=== PATIENT | female | born 1995 | race Caucasian/White ===

== ENCOUNTER 2016-07-22 12:20 | Emergency (ER) | payer OTHER ==
[~2016-07-22] VITALS: Ht 165.1 cm; Wt 58.2 kg
[~2016-07-22 12:20] MED LIST: FEXO1TAB46 PO; MAGN400T6 PO; MULT-506 PO; OMEP20CA9 PO; donperidone PO
[2016-07-22 12:22] VITALS: TEMP 36.6; Ht 165.1 cm; Wt 58.2 kg
[2016-07-22] MEDS ORDERED: KETOROLAC TROMETHAMINE 30 MG/ML VIAL IV STA (12:29)
[2016-07-22] MEDS ORDERED: SODIUM CHLORIDE 0.9% 1000ML 1,000 ML IV STA (12:29)
[2016-07-22 12:55] LABS: BASO % 0.2 %; BASO ABS # 0.02 K/uL (0-0.2); COMPLETE YES; EOS % 2.4 %; HEMATOCRIT 42.3 % (37-47); IG% 0.3 %; LYMPH % 16.3 %; LYMPH ABS # 1.49 K/uL (1.2-3.4); MEAN CELL VOLUME 86.5 fL (80-100); MEAN CORPUSCULAR HEMOGLOBIN 30.3 pg (25-34); MEAN PLATELET VOLUME 9.9 fL (7.4-10.4); MONO % 6.3 %; NEUT % 74.5 %; PLATELET COUNT 217 K/uL (130-400); RED BLOOD COUNT 4.89 M/uL (4.2-5.4); WHITE BLOOD COUNT 9.14 K/uL (4.8-10.8)
[2016-07-22 13:12] LABS: BUN/CREATININE RATIO 10.7 (10-20); CALCIUM 9.6 mg/dl (8.5-10.1); CREATININE 0.92 mg/dl (0.60-1.20)
[2016-07-22 13:15] LABS: ALB/GLOB RATIO 1.4 (0.9-2)
[2016-07-22] MEDS ORDERED: KETOROLAC TROMETHAMINE 30 MG/ML VIAL ONE (14:45)
[2016-07-22 15:17] VITALS: O2SAT 100
--- NOTE | 2016-07-22 15:32 | DIAGNOSTIC IMAGING REPORT ---
PELVIC ULTRASOUND CLINICAL HISTORY: Right lower quadrant pain. Right pelvic pain. COMPARISON STUDY: None. TECHNIQUE: Transabdominal sonography of the pelvis was performed. Transvaginal imaging was deferred in this patient. FINDINGS: The uterus measures 8.8 x 3.6 x 4.6 cm. The endometrium measures 6 mm in thickness. The right ovary measures 2.5 x 1.2 x 1.9 cm and the left measures 1.7 x 1.4 x 1.7 cm. No free fluid is identified. A noncompressible tubular structure within the right lower quadrant measures 8 mm in caliber. This has gut signature and could reflect the appendix. IMPRESSION: 1. Unremarkable transabdominal sonographic appearance of the uterus and ovaries. 2. 8 mm noncompressible tubular structure within the right lower quadrant. This may reflect the appendix. If so, the appendix is mildly dilated. The findings are not highly suggestive of acute appendicitis although if clinical concern, a CT with contrast could be obtained. Electronically signed by: Steve Morataya M.D. 07/22/2016 3:31 PM Dictated Date/Time: 07/22/2016 3:28 PM
[2016-07-22 15:55] LABS: URINE APPEARANCE CLEAR (CLEAR); URINE BILIRUBIN NEG (NEG); URINE COLOR YELLOW; URINE EPITHELIAL CELL AUTO >30 /lpf (0-5); URINE NITRITE NEG (NEG); URINE SPECIFIC GRAVITY 1.008 (1.000-1.030); UROBILINOGEN NEG (NEG)
--- NOTE | 2016-07-22 15:59 | EMERGENCY ROOM VISIT NOTE ---
History Report prepared by Eugenie: Lona Salmeron Under the Supervision of: Dr. Rangel Lira D.O. First contact with patient: 12:25 Chief Complaint: PELVIC PAIN Stated Complaint: PELVIC PAIN/ MENSTRAUL PAIN History of Present Illness The patient is a 20 year old female who presents to the Emergency Room with complaints of worsening menstrual cramps starting this morning. She rates her discomfort as a 7/10 in severity. She reports that her last 2 periods had included increasingly painful cramps. This morning she started her period and experienced worse cramps that are very uncharacteristic for her. The pain is more present in her right side and radiates down into her legs. She describes the pain as intense. She is also experiencing dizziness, nausea, and some fever. She denies any abnormal vaginal discharge, diarrhea, constipation, or urinary symptoms. She took some Motrin this morning which gave her some relief. The patient denies being sexually active and she has not been before. She has a family history of endometriosis. Source of History: patient Onset: this morning Position: pelvis (right) Symptom Intensity: 7/10 Quality: other (intense pain) Timing: worsening Modifying Factors (Relieving): ibuprofen Associated Symptoms: + fevers, + nausea, No diarrhea, No urinary symptoms Note: Pt reports dizziness. Pt denies abnormal vaginal discharge or constipation. Review of Systems See HPI for pertinent positives & negatives. A total of 10 systems reviewed and were otherwise negative. Past Medical & Surgical Medical Problems: (1) Asthma (2) Gastroparesis (3) Gastrostomy tube in place Family History Cancer Endometriosis Gallbladder disease Heart disease Hypertension Lung disease Social History Smoking Status: Never Smoker Marital Status: single Housing Status: lives with roommate Occupation Status: [employer] student Current/Historical Medications Scheduled Magnesium Oxide (Mag-Ox), 400 MG PO DAILY Omeprazole (Prilosec), 20 MG PO DAILY [donperidone], 10 MG PO DAILY Allergies Coded Allergies: Penicillins (Verified Allergy, Unknown, HIVES, 07/22/16) Physical Exam Vital Signs Date Time Temp Pulse Resp B/P Pulse Ox O2 Delivery O2 Flow Rate FiO2 07/22/16 15:17 58 16 111/71 100 07/22/16 14:41 52 18 106/76 97 07/22/16 12:22 36.6 80 20 113/73 94 Room Air Physical Exam CONSTITUTIONAL/VITAL SIGNS: Reviewed / noted above. GENERAL: Non-toxic in appearance. INTEGUMENTARY: Warm, dry, and [place]. HEAD: Normocephalic. EYES: without scleral icterus or trauma. ENT/OROPHARYNX: clear and moist. LYMPHADENOPATHY/NECK: Is supple without lymphadenopathy or meningismus. RESPIRATORY: Lungs clear and equal. CARDIOVASCULAR: Regular rate and rhythm. GI/ABDOMEN: Soft. No organomegaly or pulsatile mass. No rebound or guarding. Normal bowel sounds. Mild tenderness to the right pelvis. EXTREMITIES: Warm and well perfused. BACK: No CVA tenderness. NEUROLOGICAL: Intact without focal deficits. PSYCHIATRIC: normal affect. MUSCULOSKELETAL: Normally developed with good muscle tone. Medical Decision & Procedures ER Provider Diagnostic Interpretation: Radiology results as stated below per my review and radiologist interpretation: PELVIC ULTRASOUND CLINICAL HISTORY: Right lower quadrant pain. Right pelvic pain. COMPARISON STUDY: None. TECHNIQUE: Transabdominal sonography of the pelvis was performed. Transvaginal imaging was deferred in this patient. FINDINGS: The uterus measures 8.8 x 3.6 x 4.6 cm. The endometrium measures 6 mm in thickness. The right ovary measures 2.5 x 1.2 x 1.9 cm and the left measures 1.7 x 1.4 x 1.7 cm. No free fluid is identified. A noncompressible tubular structure within the right lower quadrant measures 8 mm in caliber. This has gut signature and could reflect the appendix. IMPRESSION: 1. Unremarkable transabdominal sonographic appearance of the uterus and ovaries. 2. 8 mm noncompressible tubular structure within the right lower quadrant. This may reflect the appendix. If so, the appendix is mildly dilated. The findings are not highly suggestive of acute appendicitis although if clinical concern, a CT with contrast could be obtained. Electronically signed by: Steve Morataya M.D. 07/22/2016 3:31 PM Dictated Date/Time: 07/22/2016 3:28 PM Laboratory Results 07/22/16 12:45 Red Blood Count 4.89, Mean Corpuscular Volume 86.5, Mean Corpuscular Hemoglobin 30.3, Mean Corpuscular Hemoglobin Concent 35.0, Mean Platelet Volume 9.9, Neutrophils (%) (Auto) 74.5, Lymphocytes (%) (Auto) 16.3, Monocytes (%) (Auto) 6.3, Eosinophils (%) (Auto) 2.4, Basophils (%) (Auto) 0.2, Neutrophils # (Auto) 6.80, Lymphocytes # (Auto) 1.49, Monocytes # (Auto) 0.58, Eosinophils # (Auto) 0.22, Basophils # (Auto) 0.02 07/22/16 12:45 Test 07/22/16 12:45 07/22/16 15:30 White Blood Count 9.14 K/uL (4.8-10.8) Red Blood Count 4.89 M/uL (4.2-5.4) Hemoglobin 14.8 g/dL (12.0-16.0) Hematocrit 42.3 % (37-47) Mean Corpuscular Volume 86.5 fL (80-100) Mean Corpuscular Hemoglobin 30.3 pg (25-34) Mean Corpuscular Hemoglobin Concent 35.0 g/dl (32-36) Platelet Count 217 K/uL (130-400) Mean Platelet Volume 9.9 fL (7.4-10.4) Neutrophils (%) (Auto) 74.5 % Lymphocytes (%) (Auto) 16.3 % Monocytes (%) (Auto) 6.3 % Eosinophils (%) (Auto) 2.4 % Basophils (%) (Auto) 0.2 % Neutrophils # (Auto) 6.80 K/uL (1.4-6.5) Lymphocytes # (Auto) 1.49 K/uL (1.2-3.4) Monocytes # (Auto) 0.58 K/uL (0.11-0.59) Eosinophils # (Auto) 0.22 K/uL (0-0.5) Basophils # (Auto) 0.02 K/uL (0-0.2) RDW Standard Deviation 40.4 fL (36.4-46.3) RDW Coefficient of Variation 12.6 % (11.5-14.5) Immature Granulocyte % (Auto) 0.3 % Immature Granulocyte # (Auto) 0.03 K/uL (0.00-0.02) Anion Gap 3.0 mmol/L (3-11) Est Creatinine Clear Calc Drug Dose 88.5 ml/min Estimated GFR () 104.6 Estimated GFR (Non- 90.3 BUN/Creatinine Ratio 10.7 (10-20) Calcium Level 9.6 mg/dl (8.5-10.1) Total Bilirubin 0.4 mg/dl (0.2-1) Aspartate Amino Transf (AST/SGOT) 16 U/L (15-37) Alanine Aminotransferase (ALT/SGPT) 25 U/L (12-78) Alkaline Phosphatase 54 U/L (45-117) Total Protein 8.5 gm/dl (6.4-8.2) Albumin 4.9 gm/dl (3.4-5.0) Globulin 3.6 gm/dl (2.5-4.0) Albumin/Globulin Ratio 1.4 (0.9-2) Urine Color YELLOW Urine Appearance CLEAR (CLEAR) Urine pH 7.0 (4.5-7.5) Urine Specific [place] 1.008 (1.000-1.030) Urine Protein NEG (NEG) Urine Glucose (UA) NEG (NEG) Urine Ketones NEG (NEG) Urine Occult Blood 3+ (NEG) Urine Nitrite NEG (NEG) Urine Bilirubin NEG (NEG) Urine Urobilinogen NEG (NEG) Urine Leukocyte Esterase MODERATE (NEG) Urine WBC (Auto) 5-10 /hpf (0-5) Urine RBC (Auto) 10-30 /hpf (0-4) Urine Hyaline Casts (Auto) 1-5 /lpf (0-5) Urine Epithelial Cells (Auto) >30 /lpf (0-5) Urine Bacteria (Auto) NEG (NEG) Urine Test NEG (NEG) Laboratory results as stated above per my review. Medications Administered Medications (Trade) Dose Ordered Sig/Mo Route Start Time Stop Time Status Last Admin Dose Admin Sodium Chloride (Nss 1000ml) 1,000 ml @ 999 mls/hr Q1H1M STAT IV 07/22/16 12:29 07/22/16 13:29 DC 07/22/16 12:29 999 MLS/HR Ketorolac Tromethamine (Toradol Inj) 30 mg NOW STAT IV 07/22/16 12:29 07/22/16 12:33 DC 07/22/16 14:39 30 MG ED Course 1226: Previous medical records were reviewed. The patient was evaluated in room B4B. A complete history and physical examination was performed. 1229: Toradol Inj 30 mg IV, NSS 1000 ml @ 999 mls/hr IV. 1555: On reevaluation, the patient is resting comfortably. I discussed the results and findings with the patient. She verbalized agreement of the treatment plan. She was discharged home. Medical Decision Differential considered: pancreatitis, hepatitis, or acute cholecystitis, AAA, UTI, pyelonephritis, kidney stones, appendicitis, diverticulitis, shingles, bowel obstruction mesenteric ischemia, intussusception,hernia, ovarian torsion, ruptured ovarian cyst,ectopic , . This is a 20-year-old female who presents to the ED with a chief complaint of right-sided pelvic pain. The patient states that her period started this morning. She developed a bad menstrual pain and a little dizziness this morning. She states that her mother has a history of endometriosis. Her mother was concerned that she might have a cyst. She came in for evaluation of this. She denies any nausea or vomiting. She denies any fevers. No abnormal vaginal discharge. She denies being sexually active ever. The patient states that she took some Motrin that helped. She is currently in no distress. Her physical exam revealed some mild tenderness in the right lower pelvis. Vital signs are stable. Complete medical panel was normal. Chemistry panel was unremarkable. Ultrasound of pelvis did not reveal any abnormalities with regards to reproductive organs. The ultrasound showed an 8 mm tubular structure. I did reassess the patient. She currently states that she is not in pain. She had Toradol IV. I reexamined her abdomen. She has no tenderness in or around the right lower quadrant. Agent is felt to be stable for discharge. I did recommend that she return to the emergency department if she develops increasing or recurrence of pain in the right lower quadrant for a CT to rule out appendicitis. Impression Primary Impression: Menstrual cramps Additional Impression: RLQ abdominal pain Scribe Attestation The scribe's documentation has been prepared under my direction and personally reviewed by me in its entirety. I confirm that the note above accurately reflects all work, treatment, procedures, and medical decision making performed by me. Departure Information Dispostion Home / Self-Care Referrals No Doctor, Assigned (PCP) Patient Instructions Abdominal Pain, [facility] Additional Instructions Return to the emergency department should you develop increasing or recurrence of the right lower quadrant abdominal pain. If you have increasing right lower quadrant abdominal pain, this could indicate appendicitis. Return for CT scan of the abdomen and pelvis to rule this out if you should have any recurrence or worsening of pain. Problem Qualifiers
[2016-07-22 16:03] LABS: MANUAL MICROSCOPIC REQUIRED? NO; REVIEW REQ? NO
[2016-07-22 16:40] VITALS: BP 102/56; PULSE 74
== END 2016-07-22 16:42 | disposition home or self-care (01) ==
LOC: C.EDB 12:21
DX: N94.6 Dysmenorrhea, unspecified (principal); R10.31 Right lower quadrant pain; K31.84 Gastroparesis; J45.909 Unspecified asthma, uncomplicated; Z93.1 Gastrostomy status; Z79.899 Other long term (current) drug therapy; Z88.0 Allergy status to penicillin; Z80.9 Family history of malignant neoplasm, unspecified; Z83.79 Family history of other diseases of the digestive system; Z82.49 Family history of ischemic heart disease and other diseases of the circulatory system